=== PATIENT | female | born 1965 | race Two or more races ===

== ENCOUNTER 2017-12-13 14:31 | Outpatient (CLI) | payer OTHER | END 2017-12-13 15:00 | disposition home or self-care (01) | LOC: RAD 501 14:31 | DX: M54.2 Cervicalgia (principal); M25.512 Pain in left shoulder ==

== ENCOUNTER 2018-03-10 09:22 | Outpatient (CLI) | payer OTHER | END 2018-03-10 09:49 | disposition home or self-care (01) | LOC: RAD 09:22 → MAMO-SONO 09:45 → RAD 09:45 | DX: J44.9 Chronic obstructive pulmonary disease, unspecified (principal); N62 Hypertrophy of breast; Z12.31 Encounter for screening mammogram for malignant neoplasm of breast ==

== ENCOUNTER 2018-03-21 14:09 | Outpatient (CLI) | payer OTHER | END 2018-03-21 14:22 | disposition home or self-care (01) | LOC: NUCLEAR 14:09 | DX: M81.0 Age-related osteoporosis without current pathological fracture (principal) ==